=== PATIENT | female | born 1955 | race Caucasian/White ===

== ENCOUNTER 2019-10-31 07:31 | Emergency (ER) | payer MEDICARE ==
[~2019-10-31] VITALS: Ht 160 cm; Wt 90.9 kg
[2019-10-31 08:09] VITALS: BP 192/94
[2019-10-31] MEDS ORDERED: NAPR-695 PO (08:23)
[2019-10-31] MEDS ORDERED: ORPH100T PO (08:23)
--- NOTE | 2019-10-31 08:23 | PHYS DOC ---
Past Medical History Past Medical History: No Pertinent History Past Surgical History: No Surgical History Smoking Status: Never Smoker Alcohol Use: Occasionally Drug Use: None General Adult EDM: Chief Complaint: LOWER EXT PAIN HPI: HPI: Patient is a 64 year old female presents with report of left posterior thigh and calf pain that started yesterday after tripping on a step. Patient denies any fall but felt a "ripping sensation" in the back of her leg. Reports since has been unable to walk secondary to discomfort. Patient does have a walker which she has been able to still get around. Denies any leg swelling. Denies bruising. Denies prior injury to leg. Denies fever or chills. Review of Systems: Review of Systems: Constitutional: Denies fever or chills Eyes: Denies redness or eye pain HENT: Denies nasal congestion or sore throat Respiratory: Denies cough or shortness of breath Cardiovascular: Denies chest pain or palpitations GI: Denies abdominal pain, nausea, or vomiting : Denies dysuria or hematuria Musculoskeletal: Denies back pain; reports pain to left buttocks, thigh, and calf. Integument: Denies rash or skin lesions Neurologic: Denies headache, focal weakness or sensory changes Complete systems were reviewed and found to be within normal limits, except as documented in this note. Allergies: Allergies: Allergies Coded Allergies Type Severity Reaction Last Updated Verified No Known Drug Allergies 10/31/19 No Physical Exam: PE: Constitutional: Well developed, well nourished, no acute distress, non-toxic appearance HENT: Normocephalic, atraumatic Eyes: Conjunctiva normal, no discharge Neck: Normal range of motion, no tenderness, supple Lungs & Thorax: No respiratory distress, equal chest rise and fall Skin: Warm, dry, no erythema, no rash, no ecchymosis Back: No midline or paraspinal tenderness, no CVA tenderness Extremities: Tenderness to palpation of left lower buttocks and hamstrings, calf nontender, achilles tendon intact, good strength with dorsaflexion and plantar flexion of left foot, left PT +2, sensation intact, no edema Neurologic: Alert and oriented X 3, no focal deficits noted Psychologic: Affect normal, judgment normal Current Patient Data: Vital Signs: Vital Signs Date Time Temp Pulse Resp B/P (MAP) Pulse Ox O2 Delivery O2 Flow Rate FiO2 10/31/19 08:09 97.9 59 18 192/94 (126) 97 Room Air 97.9 EKG: EKG: [] Radiology/Procedures: Radiology/Procedures: [] Course & Med Decision Making: Course & Med Decision Making Patient presents with HPI and physical exam concerning for muscle strain to left posterior leg. Achilles tendon intact. Joints stable. No tenderness to low back on palpation. Symptomatic treatment provided with IM ketorolac and Norflex. Andre wrap applied to left thigh. Ice provided. Educated to continue use of walker for support. ER imaging not warranted as appears to have no bony tenderness or signs of dislocation. Patient stable for discharge with outpatient follow-up with PCP/orthopedics. Orthopedic referral provided. Discussed findings and plan with patient and family, who acknowledge understanding and agreement. Jameel Disclaimer: Jameel Disclaimer: This electronic medical record was generated, in whole or in part, using a voice recognition dictation system. Splinting Splinting : Location: Left thigh Pre-Made Type: ANDRE bandage Pre-Proc Neuro Vasc Exam: normal Post-Proc Neuro Vasc Exam: normal, unchanged from pre-exam Departure Departure Impression: Primary Impression: Muscle strain of lower extremity Qualified Codes: S86.912A - Strain of unspecified muscle(s) and tendon(s) at lower leg level, left leg, initial encounter Disposition: HOME, SELF-CARE Condition: STABLE Referrals: NO PCP (PCP) FREDO MOSCOSO MD Patient Instructions: Elastic Bandage and RICE, Muscle Strain, [id number], Walker Use Additional Instructions: May also use over the counter Tylenol as needed, ICE area 20 min on then leave off for next 20 min. May continue to repeat for next several days. Scripts Orphenadrine Citrate (ORPHENADRINE CITRATE) 100 Mg Tablet.er 100 MG PO BID PRN for MUSCLE PAIN, #20 TAB Prov: HOMERO ROSALES DO 10/31/19 Naproxen (NAPROXEN) 375 Mg Tablet 375 MG PO TID PRN for PAIN, #30 TAB Prov: HOMERO ROSALES DO 10/31/19 Justicifation of Admission Dx: Justifications for Admission: Justification of Admission Dx: N/A HOMERO ROSALES DO Oct 31, 2019 08:23
[2019-10-31] MEDS ORDERED: KETOROLAC 30 MG/ML VIAL. IM ONE (08:30)
[2019-10-31] MEDS ORDERED: ORPHENADRINE CITRATE 60 MG/2 ML VIAL. IM ONE (08:30)
== END 2019-10-31 08:55 | disposition home or self-care (01) ==
LOC: ER 07:31
DX: S86.812A Strain of other muscle(s) and tendon(s) at lower leg level, left leg, initial encounter (principal); W01.0XXA Fall on same level from slipping, tripping and stumbling without subsequent striking against object, initial encounter; Y93.89 Activity, other specified; Y92.89 Other specified places as the place of occurrence of the external cause; Y99.8 Other external cause status
CPT/HCPCS: 96372; 99284; J1885; J2360